=== PATIENT | male | born 1940 | race Caucasian/White ===

== ENCOUNTER → 2016-03-22 | Outpatient (CLI) | payer OTHER ==
[~2016-03-22] MED LIST: ASPEC81 PO; CENTRUM SILVERSILVE2 PO; CIPR-255 PO; CLTP PO; DULO-24 PO; FINA5TAB PO; FLUT0.15; OXYC-57 PO; PHEN-775 PO; ZNTT/150 PO; cymbalta PO
== END | disposition home or self-care (01) ==
LOC: C.LABBC 11:20
PROVIDERS: ATTEND Urology
DX: R35.1 Nocturia (principal)

== ENCOUNTER → 2016-06-13 | Day surgery (SDC) | payer OTHER ==
[2016-06-01 14:19] VITALS: BMI 28.0
--- NOTE | 2016-06-01 14:45 | PAT Medication Instructions ---
Service Date Jun 01, 2016. Current Home Medication List , 1 TAB PO QAM Aspirin Enteric Coated (Ecotrin Or Generic *), 81 MG PO HOLDING 10 DAYS Calcium/Vitamin D (Caltrate 600 Plus *), 1 TAB PO QAM Duloxetine HCl (Cymbalta), 2 CAP PO QAM Finasteride (Proscar), 1 TAB PO QAM Fluticasone Propionate (Nasal) (Flonase Allergy Relief), 2 SPRAY NA BID Ranitidine (Zantac), 150 MG PO QAM Medication Instructions For Your Scheduled Surgery - Hold the following medications 10 days prior to surgery per surgeon's instructions: Aspirin Enteric Coated (Ecotrin Or Generic *), 81 MG PO - Hold the following medications the morning of surgery: Calcium/Vitamin D (Caltrate 600 Plus *), 1 TAB PO QAM Centrum MVI 1 TAB PO QAM - Take the following medications the morning of surgery with a sip of water OTHERWISE NOTHING TO EAT OR DRINK AFTER MIDNIGHT: Ranitidine (Zantac), 150 MG PO QAM Duloxetine HCl (Cymbalta), 2 CAP PO QAM Finasteride (Proscar), 1 TAB PO QAM Fluticasone Propionate (Nasal) (Flonase Allergy Relief), 2 SPRAY NA BID - Take the following medications as scheduled the night before surgery: Fluticasone Propionate (Nasal) (Flonase Allergy Relief), 2 SPRAY NA BID If you have any questions please call us at [phone] or [phone] or [phone]
--- NOTE | 2016-06-01 15:13 | DIAGNOSTIC IMAGING REPORT ---
CHEST 2 VIEWS ROUTINE CLINICAL HISTORY: PAT preoperative evaluation COMPARISON STUDY: 05/11/2009 FINDINGS: No evidence of cardiac enlargement. Chronic pleural reactive change left base laterally lungs otherwise appear clear. IMPRESSION: Chronic change. No acute process. Electronically signed by: Josh Mijares M.D. 06/01/2016 3:12 PM Dictated Date/Time: 06/01/2016 3:11 PM
[2016-06-01 15:14] LABS: BASO % 0.2 %; BASO ABS # 0.02 K/uL (0-0.2); COMPLETE YES; EOS % 0.9 %; IG% 0.9 %; LYMPH % 19.9 %; LYMPH ABS # 2.19 K/uL (1.2-3.4); MEAN CELL VOLUME 98.1 fL (80-100); MEAN CORPUSCULAR HEMOGLOBIN 34.3 pg (25-34); MEAN PLATELET VOLUME 8.9 fL (7.4-10.4); MONO % 9.5 %; NEUT % 68.6 %; PLATELET COUNT 272 K/uL (130-400); RED BLOOD COUNT 4.28 M/uL (4.7-6.1); WHITE BLOOD COUNT 10.98 K/uL (4.8-10.8)
[2016-06-01 15:20] LABS: URINE APPEARANCE CLEAR (CLEAR); URINE BILIRUBIN NEG (NEG); URINE COLOR YELLOW; URINE NITRITE NEG (NEG); URINE SPECIFIC GRAVITY 1.022 (1.000-1.030); UROBILINOGEN NEG (NEG)
[2016-06-01 15:26] LABS: MANUAL MICROSCOPIC REQUIRED? NO; REVIEW REQ? NO
[2016-06-01 15:37] LABS: BUN/CREATININE RATIO 22.3 (10-20); CALCIUM 9.2 mg/dl (8.5-10.1); CREATININE 0.84 mg/dl (0.60-1.40); POTASSIUM 4.2 mmol/L (3.5-5.1)
[~2016-06-13] VITALS: Ht 175.3 cm; Wt 87.0 kg
[~2016-06-13] MED LIST changes: +ATROPINE SULFATE 0.1 MG/ML 5ML SYR IV PRN; +BELLADONNA/OPIUM SUPP 60 MG SUPP PR ONE; +CIPROFLOXACIN / D5W 400 MG IV SCH; +DEXAMETHASONE SOD INJ 4 MG/ML VIAL ONE; +EpHEDrine SULFATE INJ 50 MG/ML AMP IV PRN; +FENTANYL CITRATE INJ 50 MCG/1 ML 2 ML VIAL ONE; +HYDROmorphone INJ 2 MG/ML SYR/VIAL IV PRN; +LACTATED RINGER'S 1000ML 1,000 ML IV SCH; +LIDOCAINE HCL 2% 2 ML VIAL (20MG/ML) ONE; +ONDANSETRON INJ 2 MG/ML 2 ML VIAL IV PRN; +ONDANSETRON INJ 2 MG/ML 2 ML VIAL ONE; +OXYCODONE/ACETAMINOPHEN 5-325 TAB PO PRN; +PHENAZOPYRIDINE HCL 100 MG TAB PO PRN; +PHENYLEPHRINE 100MCG/ML 5ML SYR IV PRN; +PHENYLEPHRINE HCL INJ 10 MG/ML VIAL ONE; +PROPOFOL IV EMULSION 10 MG/ML 20 ML VIAL IV ONE; -cymbalta PO
--- NOTE | 2016-06-13 11:43 | History & Physical Bridge Note ---
H&P Re-Evaluation Bridge Note: I have examined the patient, reviewed the History & Physical and in the interval since the performance of the History & Physical I have noted the following changes of clinical significance: No changes noted
[2016-06-13 11:57] VITALS: BP 149/75; PULSE 104; TEMP 37; O2SAT 95; Ht 175.3 cm; Wt 87.0 kg
--- NOTE | 2016-06-13 13:21 | Discharge Instructions ---
Discharge Instructions Date of Service Jun 13, 2016. Admission Reason for Admission: Benign Prostatic Hypertrophy Discharge Discharge Diagnosis / Problem: BPH s/p TURP Discharge Goals Goal(s): Improve function, Improve disease control, Therapeutic intervention Activity Recommendations Activity Limitations: per Instructions/Follow-up section Lifting Limitations: no more than 25 pounds (x 1 week), gradually increase as tolerated Exercise/Sports Limitations: rest today (x 1 week), gradually increase as tolerated May Resume Sexual Activity: after two weeks Shower/Bathe: tomorrow (no tub bath with martin in place) Driving or Machine Use: resume 3 days after discharge . Instructions / Follow-Up Instructions / Follow-Up Martin catheter removal moved to Jun in office at 09:20 AM. Catheter to gravity drainage as instructed Blood in and around catheter is expected Discharge Diet Recommended Diet: Regular Diet (good fluid intake) Procedures Procedures Performed: Cystoscopy and Bipolar Transurethral Resection and Button Vaporization of Prostate Pending Studies Studies pending at discharge: yes List of pending studies: Pathology check Medical Emergencies . Who to Call and When: Medical Emergencies: If at any time you feel your situation is an emergency, please call 911 immediately. . Non-Emergent Contact Non-Emergency issues call your: Urologist Call Non-Emergent contact if: you have a fever, temperature is above 101, your pain is not controlled, your pain is worsening, your pain is unusual for you, your pain is concerning you, you have any medication questions . . "Provider Documentation" section prepared by Winston Blackman. VTE Core Measure Inpt VTE Proph given/why not?: SCD's [place] Drug Monitoring Program Search Results: patient reviewed within database, no issues identified
--- NOTE | 2016-06-13 13:23 | [facility] Post Operative Brief Note ---
Immediate Operative Summary Operative Date Jun 13, 2016. Pre-Operative Diagnosis Benign Prostatic Hyperplasia Post-Operative Diagnosis Benign Prostatic Hyperplasia Procedure(s) Performed Cystoscopy and Bipolar Transurethral Resection and Button Vaporization of Prostate Surgeon Dr. Winston Blackman [employer] Surgeon(s) None Estimated Blood Loss 10 ml Findings Open fossa after completion with excellent hemostasis Specimens A. Prostate Chips Drains 22 fr 10 cc H2O Anesthesia GALMA Complication(s) None Disposition Recovery Room / PACU
--- NOTE | 2016-06-13 13:51 | Anesthesiology Progress Note ---
Anesthesia Post Op Note Date & Time Jun 13, 2016 at 13:51 Vital Signs Pain Intensity: 0 Vital Signs Past 12 Hours Date Time Temp Pulse Resp B/P Pulse Ox O2 Delivery O2 Flow Rate FiO2 06/13/16 13:45 94 16 141/78 91 Nasal Cannula 06/13/16 13:35 90 22 131/72 97 Mask 10 06/13/16 13:25 87 19 134/77 97 Mask 10 06/13/16 13:19 37.1 89 18 130/77 97 Mask 10 06/13/16 11:57 37 104 18 149/75 95 Room Air Notes Mental Status: alert / awake / arousable, participated in evaluation Pt Amnestic to Procedure: Yes Nausea / Vomiting: adequately controlled Pain: adequately controlled Airway Patency, RR, SpO2: stable & adequate BP & HR: stable & adequate Hydration State: stable & adequate Anesthetic Complications: no major complications apparent
[2016-06-13 14:05] VITALS: BP 122/74; PULSE 83; TEMP 36.7; O2SAT 95
--- NOTE | 2016-06-13 14:28 | OPERATIVE REPORT ---
DATE OF OPERATION: 06/13/2016 PREOPERATIVE DIAGNOSIS: Benign prostatic hypertrophy with regrowth. POSTOPERATIVE DIAGNOSIS: Same. PROCEDURE: Bipolar transurethral resection and button vaporization of the prostate gland. SURGEON: Dr. Winston Blackman. TOP LIFT TRIMMER: None. ANESTHESIA: General anesthesia with laryngeal mask. COMPLICATIONS: None. ESTIMATED BLOOD LOSS: 10 mL. SPECIMENS SENT TO PATHOLOGY: Prostate chips for pathologic analysis. DRAINS LEFT IN PLACE: Include a 22-[place] Estrada catheter with 10 mL of sterile water in the balloon. FINDINGS: Open fossa after completion with excellent hemostasis. BRIEF HISTORY: Mr. Siddiqui is a pleasant 76-year-old male who I have seen as an outpatient for history of bothersome voiding symptoms despite provision of medication. Office cystoscopy has demonstrated some regrowth of his prostate tissue after prior history of TURP. After discussion of risks, benefits and various forms of intervention, he has decided upon surgical resection to manage his disease. Please see H\T\P for further details. Intravenous ciprofloxacin was provided for antibiotic coverage and SCDs used for DVT prophylaxis. Informed consent was reviewed in the chart preoperatively today. PROCEDURE IN DETAIL: The patient was properly identified and brought to the operative suite after identification of appropriate consent on the chart. General anesthesia with laryngeal mask was initiated. The patient was prepped and draped in standard fashion for this procedure. realtime reporter-out procedure was followed. A 24-[place] resectoscope was introduced into the bladder under direct visualization using a visual obturator. Prostate regrowth in the mid prostate was appreciated as previously done, as well as an open circumferential bladder neck contracture. Bladder was surveyed in its entirety, demonstrating grade 2 trabeculation and ureteral orifices in the normal anatomic location with efflux of clear yellow urine. No intravesical lesions, papillary masses, or calculi were noted. Using a bipolar loop, the bladder neck tissue and mid prostatic gland regrowth were resected. These fragments of tissue were irrigated free and sent for pathologic analysis. A bipolar button was placed and the majority of the prostate tissue which was remaining at that point was vaporized circumferentially using the bipolar button. Care was taken to avoid progression of the plane of resection past the apex of the level of the verumontanum. Relaxing incisions were made at the 5 and 7 o'clock position. Ureteral orifices were noted to be free of any injury after the completion of the case. After the prostate was circumferentially unobstructed, excellent hemostasis was appreciated. Bladder was partially distended and noted to be free of any residual fragments of tissue. The resectoscope was removed and a 22-[place] Estrada catheter was placed with return of clear irrigant. Ten mL sterile water placed in the balloon. Catheter was irrigated with isovolumic return and then placed to gravity drainage. Belladonna and opium suppository was provided for additional analgesia. Anesthesia was reversed. The patient was transferred to the recovery room in stable condition. FOLLOWUP CARE: The patient will be discharged home with Estrada catheter in place. Outpatient trial of void is confirmed. The patient is instructed to contact us should he note any fevers, chills, nausea, vomiting or other significant difficulties in the postoperative period. He was provided with prescriptions for ciprofloxacin, Percocet, and Pyridium for postoperative antibiotic coverage and analgesia. I attest to the content of the Intraoperative Record and any orders documented therein. Any exceptio ns are noted below.
[2016-06-13 14:33] VITALS: BP 119/69; PULSE 87; TEMP 36.6; O2SAT 97
[2016-06-13 15:00] VITALS: BP 127/63; PULSE 92; TEMP 37; O2SAT 92
== END | disposition home or self-care (01) ==
LOC: C.ACU 11:24
PROVIDERS: ATTEND Urology
DX: N40.0 Benign prostatic hyperplasia without lower urinary tract symptoms (principal); R35.1 Nocturia; M19.90 Unspecified osteoarthritis, unspecified site; Z82.49 Family history of ischemic heart disease and other diseases of the circulatory system; Z79.899 Other long term (current) drug therapy

== ENCOUNTER → 2016-06-22 | Outpatient (CLI) | payer OTHER ==
[~2016-06-22] MED LIST changes: -ATROPINE SULFATE 0.1 MG/ML 5ML SYR IV PRN; -BELLADONNA/OPIUM SUPP 60 MG SUPP PR ONE; -CIPROFLOXACIN / D5W 400 MG IV SCH; -DEXAMETHASONE SOD INJ 4 MG/ML VIAL ONE; -EpHEDrine SULFATE INJ 50 MG/ML AMP IV PRN; -FENTANYL CITRATE INJ 50 MCG/1 ML 2 ML VIAL ONE; -HYDROmorphone INJ 2 MG/ML SYR/VIAL IV PRN; -LACTATED RINGER'S 1000ML 1,000 ML IV SCH; -LIDOCAINE HCL 2% 2 ML VIAL (20MG/ML) ONE; -ONDANSETRON INJ 2 MG/ML 2 ML VIAL IV PRN; -ONDANSETRON INJ 2 MG/ML 2 ML VIAL ONE; -OXYCODONE/ACETAMINOPHEN 5-325 TAB PO PRN; -PHENAZOPYRIDINE HCL 100 MG TAB PO PRN; -PHENYLEPHRINE 100MCG/ML 5ML SYR IV PRN; -PHENYLEPHRINE HCL INJ 10 MG/ML VIAL ONE; -PROPOFOL IV EMULSION 10 MG/ML 20 ML VIAL IV ONE
--- NOTE | 2016-06-22 16:02 | DIAGNOSTIC IMAGING REPORT ---
BILATERAL LOWER EXTREMITY VENOUS DOPPLER HISTORY: Pain. Edema. BILAT LOWER EXTREME Pain/swelling; s/p TONG *STAT COMPARISON STUDY: None. FINDINGS: There is normal compressibility, flow, and augmentation within the bilateral lower extremity deep venous systems. IMPRESSION: No DVT within the right or left lower extremity. Electronically signed by: Josh Mijares M.D. 06/22/2016 4:00 PM Dictated Date/Time: 06/22/2016 3:59 PM
--- NOTE | 2016-06-22 16:15 | DIAGNOSTIC IMAGING REPORT ---
CHEST 2 VIEWS ROUTINE CLINICAL HISTORY: CHEST PAIN, DYSPNEA dyspnea COMPARISON STUDY: 06/01/2016 FINDINGS: Subsegmental atelectasis left base. Lungs otherwise are clear. There is no evidence for cardiomegaly. IMPRESSION: Subsegmental atelectasis left base. Otherwise negative study. Electronically signed by: Josh Mijares M.D. 06/22/2016 4:13 PM Dictated Date/Time: 06/22/2016 4:12 PM
[2016-06-22 16:40] LABS: BASO % 0.9 %; BASO ABS # 0.09 K/uL (0-0.2); COMPLETE YES; EOS % 1.5 %; HEMATOCRIT 40.8 % (42-52); IG% 1.5 %; LYMPH % 25.2 %; LYMPH ABS # 2.61 K/uL (1.2-3.4); MEAN CELL VOLUME 99.5 fL (80-100); MEAN CORPUSCULAR HEMOGLOBIN 34.9 pg (25-34); MEAN PLATELET VOLUME 8.7 fL (7.4-10.4); MONO % 15.2 %; NEUT % 55.7 %; PLATELET COUNT 344 K/uL (130-400); WHITE BLOOD COUNT 10.34 K/uL (4.8-10.8)
[2016-06-22 17:11] LABS: BLOOD UREA NITROGEN 20 mg/dl (7-18); BUN/CREATININE RATIO 21.5 (10-20); CALCIUM 9.1 mg/dl (8.5-10.1); CARBON DIOXIDE 27 mmol/L (21-32); CHLORIDE 107 mmol/L (98-107); CREATININE 0.92 mg/dl (0.60-1.40); GLUCOSE 99 mg/dl (70-99); MAGNESIUM 2.5 mg/dl (1.8-2.4); POTASSIUM 4.3 mmol/L (3.5-5.1); SODIUM 140 mmol/L (136-145)
[2016-06-22 17:22] LABS: THYROID STIMULATING HORMONE 0.968 uIu/ml (0.300-4.500)
== END | disposition home or self-care (01) ==
LOC: C.ULTR 15:30
DX: R07.9 Chest pain, unspecified (principal); R06.00 Dyspnea, unspecified; R25.2 Cramp and spasm

== ENCOUNTER → 2016-07-06 | Outpatient (CLI) | payer OTHER ==
[~2016-07-06] MED LIST changes: +ATROPINE SULFATE 0.1 MG/ML 5ML SYR ONE; +DOBUTamine HCL 12.5 MG/ML 20 ML VIAL ONE; +METOPROLOL TARTRATE 1 MG/ML VIAL ONE; -PHEN-775 PO
--- NOTE | 2016-07-06 15:01 | DOBUTAMINE ECHO ---
*NOTICE TO RECEIVING CONSTITUTION PARTY AGENCY This information is strictly Confidential and protected under [place] law. [place] law prohibits you from making any further disclosure of this information unless further disclosure is expressly permitted by the written consent of the person to whom it pertains or is authorized by law. A general authorization for the release of medical or other information is not sufficient for this purpose. Hospital accepts no responsibility if the information is made available to any other person, INCLUDING THE PATIENT. Interpretation Summary * Name: RAYMOND MCGOWAN Study Date: 07/06/2016 11:38 AM BP: 130/73 mmHg * Patient Location: [facility] HR: 77 * : 1940 (M/d/yyyy) Gender: Male Height: 69 in * Age: 76 yrs Ethnicity: [place] Weight: 190 lb * Ordering Physician: Thuan Mckeon * Referring Physician: Thuan Mckeon D.O. * Performed By: Shirin Blackman * * Reason For Study: EXERTIONAL DYSPNEA * BSA: 2.0 m2 * -- Conclusions -- * There is mild asymmetric left ventricular hypertrophy. * Left ventricular systolic function is normal. * Grade I diastolic dysfunction, (abnormal relaxation pattern). * The right ventricular systolic function is reduced as assessed by tricuspid annular plane systolic excursion (TAPSE) (TAPSE <1.6 cm). * The right atrium is mildly dilated. * Mild aortic regurgitation. * Right ventricular systolic pressure is normal. * Normal dobutamine stress echocardiogram without evidence of inducible ischemia. Procedure Details * DOBUTAMINE ECHO, CPT#[id number] * ECHO DOPPLER, CPT #[id number] * ECHO COLOR FLOW, CPT #[id number] * A contrast injection of Definity was performed to improve assessment of LV function. * Contrast was injected into an intravenous site in the right arm. * One vial of Definity ultrasound contrast was diluted in normal saline to a total volume of 10 ml. A total of '7' ml of solution was administered during imaging. * Lot # [id number] of Definity utilized for procedure. * Expiration date 06/28. * The attending nurse who injected the contrast agent was MARIELLA HARVEY RN. Left Ventricular Findings with Stress * Normal dobutamine stress echocardiogram without evidence of inducible ischemia. Left Ventricle * The left ventricle is normal in size. * There is mild asymmetric left ventricular hypertrophy. * Ejection Fraction = 55-60%. * Left ventricular systolic function is normal. * Grade I diastolic dysfunction, (abnormal relaxation pattern). * The left ventricular wall motion is normal at rest. Right Ventricle * The right ventricle is grossly normal size. * The right ventricular systolic function is reduced as assessed by tricuspid annular plane systolic excursion (TAPSE) (TAPSE <1.6 cm). Atria * The left atrial size is normal. * The right atrium is mildly dilated. Mitral Valve * The mitral valve is grossly normal. * Significant mitral regurgitation is absent. Tricuspid Valve * The tricuspid valve is not well visualized, but is grossly normal. * There is mild tricuspid regurgitation. * Right ventricular systolic pressure is normal. Aortic Valve * The aortic valve is trileaflet. * No hemodynamically significant valvular aortic stenosis. * Mild aortic regurgitation. Pericardium * There is no pericardial effusion. Stress Parameters * Normal baseline electrocardiogram. * Stress ECG: No ST changes. No arrhythmias. * The stress portion of this study was personally supervised by the undersigned interpreting physician. * Rest heart rate was '77' BPM. * Rest blood pressure was '130/73' * Maximum heart rate achieved was 129 bpm. * Maximum heart rate was 90 % of maximum age-predicted heart rate. * Maximum blood pressure was '134/68' * Total exercise time was '12:00' * Maximum Dobutamine infusion rate was '40' mcg/kg/min. * Dobutamine infusion was terminated due to achieving target heart rate * A total of 5 mg of IV Metoprolol was administered to reverse Dobutamine-induced tachycardia. * The patient did not exhibit any symptoms during drug infusion. Left Ventricular Findings with Stress * Normal wall motion at rest with normal augmentation and no development of wall motion abnormalities. No symptoms during the infusion. MMode 2D Measurements and Calculations IVSd 1.3 cm IVSs 1.4 cm LVIDd 3.6 cm LVIDs 2.4 cm LVPWd 1.0 cm LVPWs 0.93 cm IVS/LVPW 1.3 FS 32.8 % EDV(Teich) 55.7 ml ESV(Teich) 21.1 ml EF(Teich) 62.1 % EDV(cubed) 48.1 ml ESV(cubed) 14.6 ml EF(cubed) 69.6 % % IVS thick 4.9 % % LVPW thick -11.32 % LV mass(C)d 140.2 grams LV mass(C)dI 69.4 grams/m\S\2 LV mass(C)s 77.8 grams LV mass(C)sI 38.5 grams/m\S\2 CO(Teich) 2.6 l/min CI(Teich) 1.3 l/min/m\S\2 SV(Teich) 34.6 ml SI(Teich) 17.1 ml/m\S\2 CO(cubed) 2.5 l/min CI(cubed) 1.3 l/min/m\S\2 SV(cubed) 33.5 ml SI(cubed) 16.6 ml/m\S\2 ACS 1.6 cm LA dimension 3.1 cm asc Aorta Diam 3.2 cm LVOT diam 1.7 cm LVOT area 2.2 cm\S\2 LVAd ap4 25.3 cm\S\2 LVLd ap4 7.6 cm EDV(MOD-sp4) 68.4 ml LVAs ap4 14.4 cm\S\2 LVLs ap4 5.9 cm ESV(MOD-sp4) 29.2 ml EF(MOD-sp4) 57.3 % LVAd ap2 25.9 cm\S\2 LVLd ap2 7.4 cm EDV(MOD-sp2) 76.0 ml LVAs ap2 15.0 cm\S\2 LVLs ap2 5.8 cm ESV(MOD-sp2) 33.0 ml EF(MOD-sp2) 56.6 % CO(MOD-sp4) 3.0 l/min CI(MOD-sp4) 1.5 l/min/m\S\2 SV(MOD-sp4) 39.2 ml SI(MOD-sp4) 19.4 ml/m\S\2 CO(MOD-sp2) 3.3 l/min CI(MOD-sp2) 1.6 l/min/m\S\2 SV(MOD-sp2) 43.0 ml SI(MOD-sp2) 21.3 ml/m\S\2 Doppler Measurements and Calculations MV E max genaro 72.8 cm/sec MV A max genaro 72.8 cm/sec MV E/A 1.0 MV dec time 0.20 sec Ao V2 max 118.1 cm/sec Ao max PG 5.6 mmHg Ao max PG (full) 2.0 mmHg ARIANE(V,A) 1.7 cm\S\2 ARIANE(V,D) 1.7 cm\S\2 AI max genaro 376.7 cm/sec AI max PG 56.8 mmHg AI dec slope 252.7 cm/sec\S\2 AI P1/2t 436.5 msec LV V1 max PG 3.6 mmHg LV V1 max 94.6 cm/sec PA V2 max 53.4 cm/sec PA max PG 1.1 mmHg TR max genaro 251.1 cm/sec
== END | disposition home or self-care (01) ==
LOC: C.CPL 11:19
DX: R06.00 Dyspnea, unspecified (principal)

== ENCOUNTER → 2016-07-07 | Outpatient (CLI) | payer OTHER ==
[~2016-07-07] MED LIST changes: -ATROPINE SULFATE 0.1 MG/ML 5ML SYR ONE; -DOBUTamine HCL 12.5 MG/ML 20 ML VIAL ONE; -METOPROLOL TARTRATE 1 MG/ML VIAL ONE
--- NOTE | 2016-07-11 15:40 | PULMONARY FUNCTION TEST ---
CLINICAL DATA: A 76-year-old male with a height 69 inches and a weight of 190 pounds referred for evaluation of dyspnea on exertion in the setting of neuromuscular disease. Spirometry pre- and post-bronchodilator was performed. FINDINGS: Pre-bronchodilator spirometry was within normal limits. FVC was 85% of predicted. FEV1 was 85% of predicted. [id number] was 80% of predicted. There was no significant improvement after inhaled bronchodilator. IMPRESSION: Normal baseline spirometry with no significant improvement after inhaled bronchodilator. MTDD
== END | disposition home or self-care (01) ==
LOC: C.RC 11:08
DX: R06.00 Dyspnea, unspecified (principal); G70.9 Myoneural disorder, unspecified

== ENCOUNTER → 2016-07-11 | Outpatient (CLI) | payer OTHER ==
[~2016-07-11] MED LIST changes: +OPTIRAY 320 IV PRN
--- NOTE | 2016-07-11 17:04 | DIAGNOSTIC IMAGING REPORT ---
CT ANGIOGRAPHY OF THE CHEST, PULMONARY EMBOLUS PROTOCOL CLINICAL HISTORY: Dyspnea. Elevated d-dimer. COMPARISON STUDY: Chest radiograph June 22, 2016 TECHNIQUE: The patient was premedicated for an iodinated contrast allergy. Following IV administration of 94 mL of Optiray-320, helical axial images of the chest were obtained utilizing the pulmonary embolus protocol. Maximal intensity projections and sagittal and coronal reformats were viewed on an independent 3D workstation. IV contrast was administered without complication. CT DOSE: 456.14 mGy.cm FINDINGS: No pulmonary emboli are identified. The size of the heart is at the upper limits of normal. There is no pericardial effusion. There is no evidence of thoracic aortic dissection. No enlarged thoracic lymph nodes are present. No pneumothorax or pleural effusion is present. Subpleural opacity suggest atelectasis or scarring. Groundglass opacities favor atelectasis. There is no consolidation to suggest pneumonia. There are old left-sided rib deformities. There is mild nodularity of the liver surface. IMPRESSION: 1. No pulmonary emboli identified. 2. No acute intrathoracic findings. 3. Groundglass opacities which favor atelectasis. No consolidation to suggest pneumonia. Electronically signed by: Saw Syed M.D. 07/11/2016 5:03 PM Dictated Date/Time: 07/11/2016 4:54 PM
== END | disposition home or self-care (01) ==
LOC: C.CTS 16:08
DX: R06.00 Dyspnea, unspecified (principal); R79.1 Abnormal coagulation profile

== ENCOUNTER → 2016-10-20 | Outpatient (CLI) | payer OTHER ==
[~2016-10-20] MED LIST changes: -OPTIRAY 320 IV PRN
== END | disposition home or self-care (01) ==
LOC: C.RC 16:16
DX: R09.02 Hypoxemia (principal)

== ENCOUNTER → 2016-11-18 | Outpatient (CLI) | payer OTHER ==
[2016-11-18 17:50] LABS: BASO % 0.8 %; BASO ABS # 0.06 K/uL (0-0.2); COMPLETE YES; EOS % 4.1 %; HEMATOCRIT 40.9 % (42-52); IG% 0.5 %; LYMPH % 32.3 %; LYMPH ABS # 2.53 K/uL (1.2-3.4); MEAN CORPUSCULAR HEMOGLOBIN 35.4 pg (25-34); MEAN CORPUSCULAR HGB CONC 35.7 g/dl (32-36); MEAN PLATELET VOLUME 9.2 fL (7.4-10.4); MONO % 11.6 %; NEUT % 50.7 %; PLATELET COUNT 312 K/uL (130-400); RED BLOOD COUNT 4.13 M/uL (4.7-6.1); WHITE BLOOD COUNT 7.84 K/uL (4.8-10.8)
[2016-11-18 18:20] LABS: ALT/SGPT 30 U/L (12-78); BLOOD UREA NITROGEN 16 mg/dl (7-18); BUN/CREATININE RATIO 16.4 (10-20); CALCIUM 9.6 mg/dl (8.5-10.1); CARBON DIOXIDE 30 mmol/L (21-32); CHLORIDE 105 mmol/L (98-107); CREATININE 0.95 mg/dl (0.60-1.40); GLUCOSE 96 mg/dl (70-99); SODIUM 139 mmol/L (136-145)
[2016-11-18 18:26] LABS: ALKALINE PHOSPHATASE 146 U/L (45-117); AST/SGOT 27 U/L (15-37)
== END | disposition home or self-care (01) ==
LOC: C.CPL 17:16
PROVIDERS: ATTEND Orthopaedic Surgery
DX: Z01.812 Encounter for preprocedural laboratory examination (principal); Z01.810 Encounter for preprocedural cardiovascular examination

== ENCOUNTER → 2017-05-17 | Outpatient (CLI) | payer OTHER ==
[~2017-05-17] MED LIST changes: -CIPR-255 PO; -DULO-24 PO; -FINA5TAB PO; -OXYC-57 PO; +RANI150T85 PO; -ZNTT/150 PO
[2017-05-17 13:55] LABS: BLOOD UREA NITROGEN 13 mg/dl (7-18); CALCIUM 8.7 mg/dl (8.5-10.1); CARBON DIOXIDE 25 mmol/L (21-32); CREATININE 0.69 mg/dl (0.60-1.40); GLUCOSE 106 mg/dl (70-99); SODIUM 126 mmol/L (136-145)
== END | disposition home or self-care (01) ==
LOC: C.LABBC 12:07
PROVIDERS: ATTEND Urology
DX: R35.1 Nocturia (principal)

== ENCOUNTER → 2017-05-22 | Outpatient (CLI) | payer OTHER | END | disposition home or self-care (01) | LOC: C.LABBC 13:33 | PROVIDERS: ATTEND Urology | DX: R35.1 Nocturia (principal) ==

== ENCOUNTER → 2017-06-12 | Outpatient (CLI) | payer OTHER ==
[2017-06-12 17:28] LABS: BLOOD UREA NITROGEN 15 mg/dl (7-18); CALCIUM 8.6 mg/dl (8.5-10.1); CARBON DIOXIDE 27 mmol/L (21-32); CREATININE 1.06 mg/dl (0.60-1.40); GLUCOSE 89 mg/dl (70-99); POTASSIUM 4.1 mmol/L (3.5-5.1); SODIUM 135 mmol/L (136-145)
== END | disposition home or self-care (01) ==
LOC: C.LABBC 15:13
PROVIDERS: ATTEND Urology
DX: R35.1 Nocturia (principal)